=== PATIENT | female | born 1990 | race Caucasian/White ===

== ENCOUNTER 2018-04-16 01:12 | Emergency (ER) | payer SELFPAY ==
[2018-04-16] MEDS ORDERED: NORMAL SALINE 1000 ML 1,000 ML IV PRN (01:26)
[2018-04-16] MEDS ORDERED: THIAMINE HCL 100 MG in NORMAL SALINE 50 ML IV ONE (01:27)
[2018-04-16] MEDS ORDERED: ONDANSETRON 4 MG TAB.RAPDIS PO ONE (01:30)
--- NOTE | 2018-04-16 01:34 | ER Document Report ---
ED General - General Chief Complaint: Passed Out Prior to Arrival Stated Complaint: ETOH Time Seen by Provider: 04/16/18 01:17 - HPI Notes: Patient is a 27-year-old female no significant past medical history presents to the ED complaining of a left-sided headache, dizziness, trouble breathing, alcohol intoxication that began this evening. Boyfriend states that she had known argument with a family member and started drinking pretty heavily tonight. They state that when she sat down back of the [facility] that it looked like she was having some trouble breathing so they started driving to the hospital. They stopped about nursing home and called for an ambulance who briefly had an NPA placed. Patient removed within several minutes of it being placed. Patient states that her breathing difficulty has since resolved and all that remains is the headache and dizziness along with feeling intoxicated. Significant other states that her drink of choice was beer. Patient is not sure how much she drank. She denies any drug allergies. No other concerns or complaints. Denies any fever, head injury, LOC, neck pain, URI, sore throat, chest pain, palpitations, syncope, cough, shortness of breath, wheeze, dyspnea, abdominal pain, nausea/vomiting/diarrhea, urinary retention, dysuria, hematuria , loss of control of bowel or bladder, numbness/tingling, muscle paralysis/ weakness, or rash. No SI/HI. - Related Data Allergies/Adverse Reactions: No Known Allergies Allergy (Unverified 04/16/18 01:22) Past Medical History - Social History Smoking Status: Current Every Day Smoker Frequency of alcohol use: Social Drug Abuse: None Family History: Reviewed & Not Pertinent Patient has suicidal ideation: No Patient has homicidal ideation: No Renal/ Medical History: Denies: Hx Peritoneal Dialysis Review of Systems - Review of Systems -: Yes All other systems reviewed and negative Physical Exam - Vital signs Vitals: Resp Pulse Ox 13 99 04/16/18 01:32 04/16/18 01:32 - Notes Notes: PHYSICAL EXAMINATION: accompanied by female nurse GENERAL: Well-appearing, well-nourished and in no acute distress. A&Ox4. Answers questions appropriately. HEAD: Atraumatic, normocephalic. Non-tender. No huddleston sign. No bogginess/ hematoma. EYES: Pupils equal round and reactive to light, extraocular movements intact, sclera anicteric, conjunctiva are normal. No raccoon eyes/entrapment ENT: EAC clear b/l. TM's intact b/l without erythema, fluid, or perforation. Nares patent and without discharge. oropharynx clear without exudates. No tonsilar hypertrophy or erythema. Moist mucous membranes. No sinus tenderness. No hemotympanum/CSF discharge. NECK: Normal range of motion, supple without lymphadenopathy. No rigidity. No midline tenderness. Chest: No flail chest. equal rise/fall. Non-tender LUNGS: Breath sounds clear to auscultation bilaterally and equal. No wheezes rales or rhonchi. HEART: Regular rate and rhythm without murmurs, rubs, gallops. ABDOMEN: Soft, nontender, nondistended abdomen. No guarding, no rebound. No masses appreciated. Normal bowel sounds present. No CVA tenderness bilaterally. Musculoskeletal: Ext b/l: FROM to passive/active. Strength 5+/5. No deficits noted. No bony tenderness of extremities. Back: FROM to passive/active. Strength 5+/5. No vertebral point tenderness, stepoffs, or deformities. No other bony tenderness or ecchymosis. Extremities: No cyanosis, clubbing, or edema b/l. Peripheral pulses 2+. Capillary refill less than 2 seconds. NEUROLOGICAL: GCS 15. Cranial nerves grossly intact. speech is somewhat slurred. Normal sensory, motor exams. Reflexes 2+ b/l. LIAM's negative. PSYCH: pt sounds and acts intoxicated. whimpering. SKIN: Warm, Dry, normal turgor, no rashes or lesions noted. Course - Re-evaluation Re-evalutation: 04/16/18 01:37 Dr. Burnette also eval'd this patient. We will obtain a CT scan of the head, labs, fluid. 04/16/18 06:16 Patient is an afebrile, well-hydrated 7-year-old female who presents to the ED with alcohol intoxication and since resolved headache. Vitals are acceptable without any significant tachycardia, tachypnea, or hypoxia. PE is otherwise unremarkable for any focal neurological deficits. Patient is no longer slurring her words and is making sound decisions. Patient is tolerating p.o. without any difficulties. CT scan of the head, CBC, CMP, hcg, urine drug screen were unremarkable for any acute pathology. Patient was given thiamine and fluids. Patient is nontoxic-appearing. No other labs or imaging warranted at this time based on H&P. Low suspicion for any severe dehydration, meningitis , intracranial hemorrhage, ischemic stroke, or fracture at this time. Patient is aware that this condition can change from initial presentation and that she needs to monitor symptoms closely for any acute changes. Patient is able to ambulate around the room without instability or falling over. Patient does have a ride home and someone who will be with her and can care for her. Pt knows where she is at and would like to go home. Pt seems to have clarity of thought. Conservative measures for symptoms. Recheck with your PCM in 3-5 days. Return to the ED with any worsening/concerning symptoms otherwise as reviewed in discharge. Patient is in agreement. - Vital Signs Vital signs: Temp Pulse Resp BP Pulse Ox 97.6 F 103 H 16 101/56 L 98 04/16/18 01:37 04/16/18 01:37 04/16/18 05:01 04/16/18 05:01 04/16/18 05:01 - Laboratory Result Diagrams: 04/16/18 02:20 04/16/18 02:20 Laboratory results interpreted by me: 04/16/18 04/16/18 01:58 02:20 Sodium 147.6 H Chloride 108 H Urine Blood MODERATE H Discharge - Discharge Clinical Impression: Headache Qualifiers: Headache type: unspecified Headache chronicity pattern: acute headache Intractability: not intractable Qualified Code(s): R51 - Headache Alcohol intoxication Qualifiers: Complication of substance-induced condition: uncomplicated Qualified Code(s): F10.920 - Alcohol use, unspecified with intoxication, uncomplicated Condition: Stable Disposition: HOME, SELF-CARE Instructions: Acute Alcohol Intoxication ([facility]), Headache ([facility]) Additional Instructions: Maintain adequate fluid and food intake Barton diet ([employer] Bananas, rice, apples, toast, etc Zofran as needed tylenol if needed Monitor for any worsening symptoms Make sure you are staying hydrated enough to urinate and have normal BM's Recheck with your PCM in 3-5 days Return to the ED with any worsening symptoms and/or development of fever, headache, changes in behavior/mentation/vision/speech, chest pain, palpitations , syncope, shortness of breath, trouble breathing, abdominal pain, n/v/d, blood in stool/urine, loss of control of bowel/bladder, urinary retention, muscle weakness/paralysis, saddle anesthesia, numbness/tingling, or other worsening symptoms that are concerning to you. Prescriptions: Ondansetron [Zofran Odt 4 mg Tablet] 1 - 2 tab PO Q4H PRN #15 tab.rapdis PRN Reason: For Nausea/Vomiting Forms: Smoking Cessation Education Referrals: [facility] [Provider Group] - Follow up as needed [facility] [Provider Group] - Follow up as needed
--- NOTE | 2018-04-16 02:08 | RADIOLOGY REPORT (SQ) ---
EXAM DESCRIPTION: CT HEAD WITHOUT IV CONTRAST COMPLETED DATE/TME: 04/16/2018 01:26 CLINICAL HISTORY: 27 years, Female, headache, intoxicated COMPARISON: None. TECHNIQUE: Axial CT images of the brain were obtained without contrast. DLP 990 Images stored on PACS. All CT scanners at this facility use dose modulation, iterative reconstruction, and/or weight based dosing when appropriate to reduce radiation dose to as low as reasonably achievable (ALARA). [facility]: Dose Right [facility]: CareDose [facility]: Dose Right [facility]: Teradose 4D [facility]: [employer] LIMITATIONS: None. FINDINGS: There is no acute infarct, hemorrhage, mass, edema, hydrocephalus, or extra-axial fluid collection. A mucus retention cyst is in the left maxillary sinus. The paranasal sinuses and mastoid air cells are otherwise clear. There is no acute fracture. The sella appears unremarkable. IMPRESSION: No acute intracranial abnormality TECHNICAL DOCUMENTATION: Quality ID # [id number]: Final reports with documentation of one or more dose reduction techniques (e.g., Automated exposure control, adjustment of the mA and/or kV according to patient size, use of iterative reconstruction technique) 2010 [employer]- All Rights Reserved
[2018-04-16] MEDS ORDERED: THIAMINE HCL INJ 200 MG/2 ML VIAL ONE (02:13)
[2018-04-16 02:50] LABS: ABSOLUTE LYMPHOCYTES (AUTO) 1.2 10^3/uL (0.5-4.7); ABSOLUTE MONOCYTES (AUTO) 0.4 10^3/uL (0.1-1.4); ABSOLUTE NEUT (AUTO) 2.7 10^3/uL (1.7-8.2); BASOPHILS % (AUTO) 0.7 % (0-2); EOSINOPHILS % (AUTO) 0.8 % (0-6); HEMATOCRIT 38.4 % (36.0-47.0); HEMOGLOBIN 13.4 g/dL (12.0-15.5); LYMPHOCYTES % (AUTO) 27.1 % (13-45); MEAN CORPUSCULAR HEMOGLOBIN 32.2 pg (27.0-33.4); MEAN CORPUSCULAR HGB CONC 34.9 g/dL (32.0-36.0); MEAN CORPUSCULAR VOLUME 92 fl (80-97); MONOCYTES % (AUTO) 9.1 % (3-13); PLATELET COUNT 179 10^3/uL (150-450); RED BLOOD COUNT 4.15 10^6/uL (3.72-5.28); RED CELL DISTRIBUTION WIDTH 12.5 % (11.5-14.0); SEGMENTED NEUTROPHILS % (AUTO) 62.3 % (42-78); TOTAL CELLS COUNTED % (AUTO) 100 %; WHITE BLOOD COUNT 4.3 10^3/uL (4.0-10.5)
[2018-04-16 02:50] LABS: APPEARANCE,URINE CLEAR; BILIRUBIN,URINE NEGATIVE (NEGATIVE); COLOR,URINE STRAW; GLUCOSE, URINE NEGATIVE (NEGATIVE); KETONES,URINE NEGATIVE (NEGATIVE); LEUKOCYTE ESTERASE,URINE NEGATIVE (NEGATIVE); NITRITE,URINE NEGATIVE (NEGATIVE); PROTEIN,URINE NEGATIVE (NEGATIVE); URINE SPECIFIC GRAVITY 1.006; UROBILINOGEN,URINE NEGATIVE mg/dL (<2.0)
[2018-04-16 03:30] LABS: ALANINE AMINOTRANSFERASE 13 U/L (9-52); ALBUMIN 4.3 g/dL (3.5-5.0); ALKALINE PHOSPHATASE 60 U/L (38-126); ANION GAP 15 (5-19); ASPARTATE AMINO TRANSFERASE 17 U/L (14-36); BILIRUBIN,DIRECT 0.3 mg/dL (0.0-0.4); BILIRUBIN,TOTAL 0.3 mg/dL (0.2-1.3); BLOOD UREA NITROGEN 12 mg/dL (7-20); CALCIUM 8.9 mg/dL (8.4-10.2); CARBON DIOXIDE 25 mmol/L (22-30); CHLORIDE 108 mmol/L (98-107); GLUCOSE 100 mg/dL (75-110); POTASSIUM 3.9 mmol/L (3.6-5.0); SODIUM 147.6 mmol/L (137-145); TOTAL PROTEIN 6.7 g/dL (6.3-8.2)
[2018-04-16 03:34] LABS: URINE AMPHETAMINES SCREEN NEGATIVE; URINE BARBITURATES SCREEN NEGATIVE; URINE BENZODIAZEPINES SCREEN NEGATIVE; URINE COCAINE SCREEN NEGATIVE; URINE MARIJUANA (THC) SCREEN NEGATIVE; URINE METHADONE SCREEN NEGATIVE; URINE PHENCYCLIDINE SCREEN NEGATIVE
[2018-04-16] MEDS ORDERED: IBUPROFEN 600 MG TABLET PO ONE (06:16)
[2018-04-16 09:02] VITALS: BP 101/58
== END 2018-04-16 09:02 | disposition home or self-care (01) ==
LOC: ER 01:12
DX: R51 Headache (principal); F10.920 Alcohol use, unspecified with intoxication, uncomplicated; R42 Dizziness and giddiness; R06.00 Dyspnea, unspecified; F17.200 Nicotine dependence, unspecified, uncomplicated
CPT/HCPCS: 99284; 96361; 96374; 36415; 84703; 85025; 80053; 81001; 80307; 70450; S0119; J3411; J7030